=== PATIENT | male | born 1975 | race African-American/Black ===

== ENCOUNTER 2018-06-11 17:25 | Emergency (ER) | payer OTHER ==
--- NOTE | 2018-06-11 18:10 | ER Document Report ---
ED Medical Screen (RME) - General Chief Complaint: Knee Pain Stated Complaint: RIGHT KNEE PAIN Time Seen by Provider: 06/11/18 17:54 Mode of Arrival: Ambulatory Information source: Patient Notes: 43-year-old male presented to ED for complaint of right knee pain. 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 He states that his knee has slowly gotten larger and redder and more painful over the last week. He states that he has been walking and working on it but the pain is become worse each day. His knee is red swollen and hot to the touch. He states the pain radiates all the way up to his groin area. I have greeted and performed a rapid initial assessment of this patient. A comprehensive ED assessment and evaluation of the patient, analysis of test results and completion of medical decision making process will be conducted by an additional ED providers. TRAVEL OUTSIDE OF THE [place] IN LAST 30 DAYS: No - Related Data Allergies/Adverse Reactions: No Known Allergies Allergy (Unverified 06/11/18 17:26) Physical Exam - Vital signs Vitals: Temp Pulse Resp BP Pulse Ox 98.8 F 96 18 158/99 H 97 06/11/18 17:30 06/11/18 17:30 06/11/18 17:30 06/11/18 17:30 06/11/18 17:30 Course - Vital Signs Vital signs: Temp Pulse Resp BP Pulse Ox 98.8 F 96 18 158/99 H 97 06/11/18 17:30 06/11/18 17:30 06/11/18 17:30 06/11/18 17:30 06/11/18 17:30
--- NOTE | 2018-06-11 18:24 | RADIOLOGY REPORT (SQ) ---
EXAM DESCRIPTION: KNEE RIGHT 4 VIEWS COMPLETED DATE/TIME: 06/11/2018 6:15 pm REASON FOR STUDY: red swollen inflamed knee COMPARISON: None. NUMBER OF VIEWS: Four views. TECHNIQUE: AP, lateral, and both oblique radiographic images acquired of the right knee. LIMITATIONS: None. FINDINGS: MINERALIZATION: Normal. BONES: No acute fracture or dislocation. No worrisome bone lesions. No significant osteophytes. JOINT: No effusion. No chondrocalcinosis. OTHER: No other significant finding. IMPRESSION: NEGATIVE STUDY OF THE RIGHT KNEE. NO EXPLANATION FOR PAIN. TECHNICAL DOCUMENTATION: JOB ID: [id number] [employer]- All Rights Reserved Reading location - IP/workstation name: [email or web address]
[2018-06-11] MEDS ORDERED: LIDOCAINE 1% INJ-PF (10 MG/ML) 30 ML SDV INJ ONE (18:41)
[2018-06-11] MEDS ORDERED: BENZOCAINE/MENTHOL AEROSOL SPRAY 56 ML TOP ONE (18:49)
[2018-06-11] MEDS ORDERED: NORFLURANE/PENTAFLUOROPROPANE 30 ML SPRAY TP ONE ×2 (18:52)
--- NOTE | 2018-06-11 19:12 | ER Document Report ---
ED General - General Chief Complaint: Knee Pain Stated Complaint: RIGHT KNEE PAIN Time Seen by Provider: 06/11/18 17:54 Mode of Arrival: Ambulatory Information source: Patient Notes: Patient is a 43-year-old male who presents emergency department with right knee pain. 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 He was standing and a metal BB fell between his knee pad and his knee. He was unable to take the BB out, but continued to work while he had this injury to his knee. He has not seen a primary care doctor for this issue. He actually has a not been to a primary care doctor since June. He does complain of pain when touched in his right knee. He is able to bend his knee 90 degrees. TRAVEL OUTSIDE OF THE [place] IN LAST 30 DAYS: No - Related Data Allergies/Adverse Reactions: No Known Allergies Allergy (Unverified 06/11/18 17:26) Past Medical History - General Information source: Patient - Social History Smoking Status: Never Smoker Frequency of alcohol use: None Drug Abuse: None Lives with: Alone Family History: Reviewed & Not Pertinent Patient has suicidal ideation: No Patient has homicidal ideation: No Renal/ Medical History: Denies: Hx Peritoneal Dialysis Review of Systems - Review of Systems Notes: REVIEW OF SYSTEMS: CONSTITUTIONAL : Denies recent illness. Denies recent unintentional weight loss. Denies fever, chills, or sweats. EENT: Denies eye, ear, throat, or mouth pain, discharge, or symptoms. Denies nasal or sinus congestion. CARDIOVASCULAR: Denies chest pain. RESPIRATORY: Denies shortness of breath, cough, congestion, difficulty breathing, or wheezing. GASTROINTESTINAL: Denies nausea, vomiting, and diarrhea. Denies abdominal pain. Denies constipation. GENITOURINARY: Denies difficulty urinating, burning, blood in urine, urgency or frequency. MUSCULOSKELETAL: Denies neck and back pain. Denies joint pain or swelling. SKIN: See HPI HEMATOLOGIC : Denies easy bruising or bleeding. LYMPHATIC: Denies swollen, painful, enlarged glands. NEUROLOGICAL: Denies no numbness or tingling denies weakness. Denies headache. Denies altered mental status. Denies alteration in speech. PSYCHIATRIC: Denies stress, anxiety, alteration in sleep patterns, or depression. All other systems reviewed and negative. Physical Exam - Vital signs Vitals: Temp Pulse Resp BP Pulse Ox 98.8 F 96 18 158/99 H 97 06/11/18 17:30 06/11/18 17:30 06/11/18 17:30 06/11/18 17:30 06/11/18 17:30 - Notes Notes: PHYSICAL EXAMINATION: GENERAL: Appears well, healthy, well-nourished, no acute distress. HEAD: Normocephalic, atraumatic. EYES: PERRL, conjunctiva normal, all extraocular movements intact, sclera nonicteric ENT: Moist mucous membranes. NECK: Supple, no noticeable swelling, redness, rash. Normal range of motion. LUNGS: Equal breath sounds bilaterally and clear to auscultation. No wheezes rales or rhonchi. CARDIOVASCULAR: S1-S2, regular rate, regular rhythm. Radial pulses 2+, normal. ABDOMEN: Normoactive bowel sounds. Soft, nontender, no guarding, no rebound te nderness, and no masses palpated. EXTREMITIES: Normal strength and range of motion, no pitting or edema. No cyanosis. NEUROLOGICAL: Moves all extremities upon command. Strength 5/5 in all extremi ties. PSYCH: Normal mood, normal affect. SKIN: Warm, dry. Abscess with open skin noted to right knee. Purulent drainage noted on assessment. Surrounding cellulitis on knee leading up to lower one third of right thigh. Normal skin turgor. Course - Re-evaluation Re-evalutation: Differential diagnosis includes but normal limited to: abscess, dermoid cyst, sebaceous cyst, furnucle, or others. Based on patient's physical exam and history, this is an abscess with cellulitis. It was drained in the ER. I do not believe the patient has underlying necrotizing fasciitis. Patient does not has risk factors for MRSA. Based on patient's physical exam and these factors, they will be treated with antibiotics. 06/11/18 19:12 I do not suspect the patient has a septic joint because he is able to bend his knee to 90 degrees. I do not suspect osteomyelitis. His x-ray is normal. No metal fragments noted on x-ray of his right knee. An incision and drainage was made in the area. No fragments found. Purulent drainage was drained from the area. Patient tolerated procedure well. Verbal discharge instructions were given to the patient. He will be started on Keflex and doxycycline. Patient verbalized understanding. He is stable for discharge. 06/11/18 20:26 I was informed by the primary nurse that the patient's blood pressure was high on discharge vital signs. I did a manual blood pressure on him and got 168/108. He states he is supposed to be on hydrochlorothiazide 50 mg p.o. daily and on amlodipine 5 mg daily. I wrote him a prescription for 25 mg of hydrochlorothiazide and told him he needs to follow-up with a primary care doctor. He will also get a dose of hydrochlorothiazide to control his blood pressure right now. Last time he saw a primary care doctor was in June and he stopped taking his blood pressure medications. I had an extensive conversation with the patient in regards to controlling his blood pressure. He is in understanding and is in agreement. - Vital Signs Vital signs: Temp Pulse Resp BP Pulse Ox 98.2 F 81 21 H 168/108 H 99 06/11/18 20:07 06/11/18 20:07 06/11/18 20:07 06/11/18 20:22 06/11/18 20:07 Discharge - Discharge Clinical Impression: Abscess Cellulitis Qualifiers: Site of cellulitis: other site Qualified Code(s): L03.818 - Cellulitis of other sites Condition: Stable Disposition: HOME, SELF-CARE Instructions: Abscess ([facility]), Cellulitis ([facility]), Cephalexin ([facility]), Family Physicians / Practices, Oral Narcotic Medication ([facility]) Additional Instructions: You are seen in the emergency department for right knee pain. You have an abscess and cellulitis in the area. The abscess was drained here in the emergency department. You have been given antibiotics. Please finish all your antibiotics as prescribed. Even if you feel better, please finish the medicine. You may take Motrin 600 mg and Tylenol 1000 mg as needed for the pain. You have also been given a [place] dose pack for the pain. If you plan on working, please do not take the [place]. Please follow-up with a primary care within the next 3-4 days doctor to have your abscess checked. If you develop a fever greater than 100.4 F, have worsening pain to the area, or have any symptoms that are worrisome to you, please return to the emergency department. Prescriptions: Cephalexin Monohydrate [Keflex 500 mg Capsule] 500 mg PO Q6H 7 Days capsule Doxycycline Hyclate 100 mg PO BID #14 capsule Hydrochlorothiazide [Hydrodiuril 25 mg Tablet] 25 mg PO QAM #30 tablet Forms: Elevated Blood Pressure
[2018-06-11] MEDS ORDERED: IBUPROFEN 600 MG TABLET PO ONE (19:18)
[2018-06-11] MEDS ORDERED: HYDROCODONE/ACETAMINOPHEN 5-325 MG (6 TAB/ER DISP) PO PRN (19:18)
[2018-06-11] MEDS ORDERED: ACETAMINOPHEN 325 MG TABLET PO ONE (19:18)
[2018-06-11 20:23] VITALS: BP 168/108
[2018-06-11] MEDS ORDERED: HYDROCHLOROTHIAZIDE 25 MG TABLET PO ONE (20:23)
== END 2018-06-11 20:42 | disposition home or self-care (01) ==
LOC: ER 17:25
PROC: 0H9KXZZ Drainage of Right Lower Leg Skin, External Approach (ICD-10-PCS; principal; 2018-06-11)
DX: L02.415 Cutaneous abscess of right lower limb (principal); L03.115 Cellulitis of right lower limb; M25.561 Pain in right knee; W22.8XXA Striking against or struck by other objects, initial encounter
CPT/HCPCS: 99283; 73564; 10060; A6266; J3490

== ENCOUNTER 2019-11-24 23:52 | Emergency (ER) | payer BC, OTHER ==
[2019-11-25] MEDS ORDERED: NORMAL SALINE 1000 ML 1,000 ML IV ONE (00:31)
--- NOTE | 2019-11-25 00:36 | ER Document Report ---
ED General - General Chief Complaint: Shortness Of Breath Stated Complaint: SHORTNESS OF BREATH,FEVER,DIARRHEA,BODY ACHES Time Seen by Provider: 11/25/19 00:04 TRAVEL OUTSIDE OF THE [place] IN LAST 30 DAYS: No - HPI Notes: Patient is a 44-year-old male who presents to the emergency department for evaluation of cough, congestion, shortness of breath, diarrhea, leg swelling. Symptoms began approximately 3 and half to 4 weeks ago. He has had a cough. It has been intermittently productive of phlegm. He has occasionally shortness of breath. He reports some anosmia over the last 2 weeks. He has had multiple episodes of diarrhea daily. He states he had 3 today. He denies any abnormal travel. He was placed on Zithromax via a telemedicine visit, states he thought his respiratory symptoms got improved for a short amount of time, but now they are back and worsened. He has pain in his lower back this made worsened by coughing. The pain does not radiate. He had a fever, highest 1 was today at 1 01. He did have a sore throat but he states that is improved as well. He noticed swelling in his left leg over the last several days. He denies any chest pain. - Related Data Allergies/Adverse Reactions: No Known Allergies Allergy (Unverified 06/11/18 17:26) Home Medications: Ibuprofen as needed for pain or fever Past Medical History - General Information source: Patient - Social History Smoking Status: Never Smoker Drug Abuse: None Family History: Other - Grandmother with "blood clots" - Past Medical History Cardiac Medical History: Reports: Hx Hypertension - Currently untreated Renal/ Medical History: Denies: Hx Peritoneal Dialysis Past Surgical History: Reports: Hx Orthopedic Surgery - Left ACL repair Review of Systems - Review of Systems Constitutional: See HPI EENT: See HPI Cardiovascular: See HPI Respiratory: See HPI Gastrointestinal: See HPI Musculoskeletal: See HPI -: Yes All other systems reviewed and negative Physical Exam - Vital signs Vitals: Temp Pulse Resp BP Pulse Ox 98.7 F 74 22 H 161/105 H 99 11/25/19 00:07 11/25/19 00:07 11/25/19 00:07 11/25/19 00:07 11/25/19 00:07 - Notes Notes: This is a pleasant 44-year-old male who appears his stated age, in no acute distress. He is intermittently tachypneic, but not conversationally so. Vital signs reviewed, please refer to chart. Head is normocephalic, atraumatic. Pupils equal round, reactive to light. Oral mucosa is moist. He has mild pharyngeal erythema, but no edema or exudate is noted. Uvula is midline. Neck is supple without meningismus. Heart is regular rate and rhythm. Lungs are clear to auscultation bilaterally. Abdomen is soft, nontender, normoactive bowel sounds throughout. Extremities without cyanosis, clubbing. He does have +1 to trace pitting edema bilaterally to the pretibial regions. Posterior calves tender, left greater than right. Peripheral pulses are equal. Skin is warm and dry. Patient is awake, alert, neurological exam is nonfocal. Course - Re-evaluation Re-evalutation: 11/25/19 00:35 Patient presents to the emergency department for evaluation. He is had a month of cough, congestion, diarrhea, and now has leg swelling. Certainly coronavirus, specifically COVID-19, is high my differential. This is ordered. I did also order CBC and CMP, proBNP, troponin, EKG. Unfortunately I do not have Doppler available at this time of night, so d-dimer was added as well. He was given IV fluids. Chest x-ray ordered. He is currently stable, not tachycardic. Awaiting results, we will continue to monitor. 11/25/19 02:06 Patient's laboratory investigations are unremarkable. His d-dimer is undetectable. His Wells criteria is low risk. We talked at length. The patient states that he will not wait here in the emergency department for Doppler to be performed in the morning. I will give him an outpatient order. I do not believe he is high risk enough to anticoagulate at this time. He is not tachycardic. Chest x-ray was interpreted by myself without the radiologist as showing no acute cardiopulmonary disease. Patient was medicated with Toradol. I will have him self quarantine at home given his pending COVID test. Otherw ise, he is to continue supportive care at home, get outpatient Doppler as discussed, and return to the ED with worsening or new concerning symptoms of any sort. - Vital Signs Vital signs: Temp Pulse Resp BP Pulse Ox 98.7 F 74 22 H 161/105 H 99 11/25/19 01:13 11/25/19 00:07 11/25/19 00:07 11/25/19 00:07 11/25/19 00:07 - Laboratory Result Diagrams: 11/25/19 00:41 11/25/19 00:41 Laboratory results interpreted by me: 11/25/19 11/25/19 11/25/19 00:41 00:41 01:25 RBC 4.20 L MCH 34.1 H Alkaline Phosphatase 33 L Urine Ascorbic Acid 40 H - Diagnostic Test Radiology reviewed: Image reviewed - No acute cardiopulmonary disease per my sole interpretation - EKG Interpretation by Me Additional EKG results interpreted by me: 11/25/19 02:08 Sinus mechanism with a rate of 69 bpm. Normal axis and intervals. J-point elevation with resultant ST changes, likely early repolarization. No prior studies for comparison. Discharge - Discharge Clinical Impression: Viral syndrome, Leg edema Diarrhea Qualifiers: Diarrhea type: presumed infectious Qualified Code(s): R19.7 - Diarrhea, unspecified Condition: Stable Disposition: HOME, SELF-CARE Instructions: Acetaminophen, Fever ([facility]), Ibuprofen (General) ([facility]), Viral Syndrome ([facility]) Additional Instructions: Your lab work today failed to reveal any significant abnormalities. Your chest x-ray showed no significant pneumonia. You have declined to stay for an ultra sound of your legs to look for a blood clot. You are being given an outpatient order to have this performed. Please follow the instructions on the the order. You have also been tested for COVID-19. This test can take several days to result. We recommend that you quarantine yourself and any family members/household contacts in your home until your results are posted. You will be contacted with results. If you develop increased difficulty breathing, chest pain, worsening swelling, increased pain, or any other new or concerning symptoms, please return immediately to the emergency department for reevaluation. Forms: Follow-Up Outpatient Testing
[2019-11-25 00:53] LABS: ABSOLUTE EOSINOPHILS # (AUTO) 0.1 10^3/uL (0.0-0.6); ABSOLUTE LYMPHOCYTES (AUTO) 2.9 10^3/uL (0.5-4.7); ABSOLUTE MONOCYTES (AUTO) 0.6 10^3/uL (0.1-1.4); BASOPHILS % (AUTO) 0.7 % (0-2); EOSINOPHILS % (AUTO) 1.6 % (0-6); HEMATOCRIT 40.8 % (37.9-51.0); HEMOGLOBIN 14.3 g/dL (13.5-17.0); LYMPHOCYTES % (AUTO) 42.8 % (13-45); MEAN CORPUSCULAR HEMOGLOBIN 34.1 pg (27.0-33.4); MEAN CORPUSCULAR VOLUME 97 fl (80-97); MONOCYTES % (AUTO) 9.8 % (3-13); PLATELET COUNT 254 10^3/uL (150-450); RED CELL DISTRIBUTION WIDTH 13.8 % (11.5-14.0); SEGMENTED NEUTROPHILS % (AUTO) 45.1 % (42-78); TOTAL CELLS COUNTED % (AUTO) 100 %; WHITE BLOOD COUNT 6.7 10^3/uL (4.0-10.5)
[2019-11-25 01:13] LABS: ALBUMIN 4.6 g/dL (3.5-5.0); ALKALINE PHOSPHATASE 33 U/L (38-126); ANION GAP 7 (5-19); ASPARTATE AMINO TRANSFERASE 32 U/L (17-59); BILIRUBIN,TOTAL 0.4 mg/dL (0.2-1.3); BLOOD UREA NITROGEN 18 mg/dL (7-20); CARBON DIOXIDE 29 mmol/L (22-30); CHLORIDE 102 mmol/L (98-107); GLUCOSE 103 mg/dL (75-110); POTASSIUM 4.3 mmol/L (3.6-5.0); TOTAL PROTEIN 7.8 g/dL (6.3-8.2)
[2019-11-25 01:24] LABS: NT PRO BNP 101 pg/mL (<125)
[2019-11-25 01:25] LABS: TROPONIN I < 0.012 ng/mL
[2019-11-25 01:59] LABS: APPEARANCE,URINE CLEAR; BILIRUBIN,URINE NEGATIVE (NEGATIVE); COLOR,URINE YELLOW; GLUCOSE, URINE NEGATIVE (NEGATIVE); KETONES,URINE NEGATIVE (NEGATIVE); LEUKOCYTE ESTERASE,URINE NEGATIVE (NEGATIVE); NITRITE,URINE NEGATIVE (NEGATIVE); PROTEIN,URINE NEGATIVE (NEGATIVE); URINE SPECIFIC GRAVITY 1.023; UROBILINOGEN,URINE NEGATIVE mg/dL (<2.0)
[2019-11-25] MEDS ORDERED: KETOROLAC TROMETHAMINE INJ/PF 30 MG/1 ML SDV IV ONE (02:06)
--- NOTE | 2019-11-25 02:35 | RADIOLOGY REPORT (SQ) ---
CHEST 1 VIEW on 11/25/2019 at 2:06 AM CLINICAL INDICATION: Cough, shortness of breath COMPARISON: None FINDINGS: The lungs are clear. Cardiac, hilar and mediastinal contours are within normal limits. Pulmonary vascularity is within normal limits. No bony abnormality is noted. IMPRESSION: No active disease.
[2019-11-25 02:58] VITALS: BP 162/103
--- NOTE | 2019-11-25 12:43 | EKG REPORT ---
SEVERITY:- BORDERLINE ECG - SINUS RHYTHM PROBABLE LEFT ATRIAL ABNORMALITY ST ELEV, PROBABLE NORMAL EARLY REPOL PATTERN : Confirmed by: Blayne Davila 25-Nov-2019 12:42:40
== END 2019-11-25 02:58 | disposition home or self-care (01) ==
LOC: ER 23:52
DX: B34.9 Viral infection, unspecified (principal); R60.0 Localized edema; R06.02 Shortness of breath; R19.7 Diarrhea, unspecified; R50.9 Fever, unspecified; M79.10 Myalgia, unspecified site; I10 Essential (primary) hypertension; R05 Cough; M54.5 Low back pain; Z20.828 Contact with and (suspected) exposure to other viral communicable diseases
CPT/HCPCS: 93005; 99285; 96361; 96374; 36415; 85025; 87635; 80053; 81001; 84484; 85379; 83880; 71045; 93010; J1885; J7030; C9803

== ENCOUNTER → 2019-12-05 | Outpatient (CLI) | payer OTHER ==
--- NOTE | 2019-12-05 16:22 | RADIOLOGY REPORT (SQ) ---
EXAM DESCRIPTION: VENOUS BILATERAL LOWER IMAGES COMPLETED DATE/TIME: 12/05/2019 3:45 pm REASON FOR STUDY: EDEMA COMPARISON: None. TECHNIQUE: Dynamic and static gregg scale and color images acquired of both lower extremity venous sy stems. Selected spectral images acquired with additional compression and augmentation maneuvers. Imag es stored on PACS. LIMITATIONS: None. FINDINGS: RIGHT LEG COMMON FEMORAL AND FEMORAL: Normal phasicity, compression and augmentation. No visualized echogenic m aterial on gregg scale. No defects on color images. POPLITEAL: Normal compression and augmentation. No visualized echogenic material on gregg scale. No de fects on color images. CALF VESSELS: Normal compression and augmentation. No visualized echogenic material on gregg scale. No defects on color image. GSV: Normal compression. No visualized echogenic material on gregg scale. No defects on color images. ANY DEEP VENOUS INSUFFICIENCY: Not evaluated. ANY EVIDENCE OF POPLITEAL CYST: No. OTHER: No other significant finding. LEFT LEG COMMON FEMORAL AND FEMORAL: Normal phasicity, compression and augmentation. No visualized echogenic m aterial on gregg scale. No defects on color images. POPLITEAL: Normal compression and augmentation. No visualized echogenic material on gregg scale. No de fects on color images. CALF VESSELS: Normal compression and augmentation. No visualized echogenic material on gregg scale. No defects on color images. GSV: Normal compression. No visualized echogenic material on gregg scale. No defects on color images. ANY DEEP VENOUS INSUFFICIENCY: Not evaluated. ANY EVIDENCE POPLITEAL CYST: No. OTHER: No other significant finding. IMPRESSION: NO EVIDENCE DVT OR SVT IN EITHER LEG. TECHNICAL DOCUMENTATION: JOB ID: [id number] [email or web address]- All Rights Reserved Reading location - IP/workstation name: [email or web address]
== END ==
LOC: SP 14:25
PROVIDERS: ATTEND Emergency Medicine
DX: R60.0 Localized edema (principal); M79.605 Pain in left leg; M79.604 Pain in right leg
CPT/HCPCS: 93970

== ENCOUNTER → 2019-12-05 | Outpatient (CLI) | payer OTHER ==
--- NOTE | 2019-12-05 13:27 | ER RDC ASSESSMENT REPORT ---
Intake - In the Last 14 days Have you traveled outside [place]?: No Have you been in close contact with someone CONFIRMED: No Worked in Healthcare?: No - Symptoms Subjective Fever([place] feverish): Yes Chills: Yes Muscule Aches: Yes Runny Nose: No Sore Throat: Yes Cough (New or worsening chronic cough): Yes Shortness of breath: Yes Nausea or Vomiting: Yes Headache: No Abdominal Pain: No Diarrhea(3 or more loose stools in last 24 hours): Yes - Do you have any of the following Chronic lung disease: Asthma or emphysema or COPD: No Cystic Fibrosis: No Diabetes: No High Blood Pressure: No Cardiovascular Disease: No Chronic Kidney Disease: No Chronic Liver Disease: No Chronic blood disorder like Sickle Cell Disease: No Weak immune system due to disease or medication: No Neurologic condition that limits movement: No Developmental delay - Moderate to Severe: No Recent (within past 2 weeks) or current : No Morbid Obesity (>100 pounds over ideal weight): No - Objective Vital Signs: 5'7", 207 lbs Temperature: 97.2 F Pulse Rate: 71 Respiratory Rate: 18 Blood Pressure: 184/119 O2 Sat by Pulse Oximetry: 98 Objective: Given above, testing performed: strep, flu, covid Disposition: Home; Selfcare - Patient is on way to hospital for further workup, radiology exam. Advised to have BP rechecked there and proceed to ER if remains elevated (we were standing outside in heavy rain when assessment completed) General - General Chief Complaint: Flu Symptoms Time Seen by Provider: 12/05/19 13:27 Mode of Arrival: Ambulatory Information source: Patient - HPI Severity: Moderate Exacerbated by: Denies Relieved by: Denies Similar symptoms previously: No Recently seen / treated by doctor: Yes Notes: 44-year-old male presents to clinic for COVID-19 testing. Patient reports onset of symptoms November 04, 2019. He is reporting fatigue, moderate chills, myalgia, sore throat, cough productive of light yellow phlegm, shortness of breath with exertion, nausea and upset stomach. No exacerbating or relieving factors. He does report a fever T-max of 100.4. Patient reports he did speak with physician at [facility] who has prescribed albuterol and antibiotics; however he has not picked those up yet. - Related Data Allergies/Adverse Reactions: No Known Allergies Allergy (Unverified 06/11/18 17:26) Past Medical History - General Information source: Patient - Social History Smoking Status: Never Smoker Family History: Other - Grandmother with "blood clots" - Past Medical History Cardiac Medical History: Reports: Hx Hypertension - Currently untreated Pulmonary Medical History: Reports: None EENT Medical History: Reports: None Neurological Medical History: Reports: None Endocrine Medical History: Reports: None Renal/ Medical History: Reports: None. Denies: Hx Peritoneal Dialysis Malignancy Medical History: Reports None GI Medical History: Reports: None Musculoskeletal Medical History: Reports None Skin Medical History: Reports None Psychiatric Medical History: Reports: None Traumatic Medical History: Reports: None Infectious Medical History: Reports: None Past Surgical History: Reports: Hx Orthopedic Surgery - Left ACL repair Physical Exam - General General appearance: Appears well In distress: None Notes: PHYSICAL EXAMINATION: GENERAL: Well-appearing and in no acute distress. HEAD: Atraumatic, normocephalic. EYES: sclera anicteric, conjunctiva are normal. ENT: nares patent. Moist mucous membranes. NECK: Normal range of motion, supple without lymphadenopathy LUNGS: CTAB and equal. No wheezes rales or rhonchi. HEART: Regular rate and rhythm without murmurs ABDOMEN: Soft, nontender, normal bowel sounds, no guarding. EXTREMITIES: Normal range of motion, no pitting edema. No cyanosis. BACK: No midline tenderness, no step-off or deformity. No CVA tenderness NEUROLOGICAL: Cranial nerves grossly intact. Normal speech. Normal gait. PSYCH: Normal mood, normal affect. SKIN: Warm, Dry, normal turgor, no rashes or lesions noted Patient Education/Counseling Counseling/Education: Patient presents with upper respiratory symptoms worrisome for possible Covid 19. Patient does not have emergency worrying symptoms such as difficulty breathing, shortness of breath, chest pain, pressure, confusion or cyanosis. BP noted to be extremely elevated (however, measured in suboptimal conditions- outside, heavy rain, standing as he did not have vehicle). Patient was on his way to [facility] for some additional testing in the IR/radiology areas after leaving [facility]. Advised to have rechecked there and proceed to ER if still elevated. Continue with additional plan of care from [facility] physician. Good return precautions have been discussed with patient, patient verbalized understanding and is agreeable with discharge plan of care at this time. Guidance for worsening S/SX: As a person under investigation for Covid 19, the [place] department of Health and Human Services, division of public health advises you to adhere to the following guidance until your test results are reported to you. If your test result is positive, you will receive additional information from your provider and your local health department at that time. Remain at home until you are cleared by the health provider or public health authorities. Keep a log of visitors to your home, notify any visitors to your home of your isolation status. If you plan to move to a new address or leave the county, notify the local health department in your County. Call your doctor or seek care if you have an urgent medical need. Before seeking medical care, call ahead to get instructions from the provider before arriving at the medical office clinic or hospital. Notify them that you are being tested for the virus that causes Covid 19 so that arrangements can be made, as necessary, to prevent transmission to others in the healthcare setting. Next, notify the local health department in your county. If a medical emergency arises and you need to call 911, inform the first responders that you are being tested for the virus that causes Covid 19. Next, notify the local health department in your county. RDC Discharge - Discharge Clinical Impression: Encounter for screening laboratory testing for COVID-19 virus Upper respiratory infection Qualifiers: URI type: unspecified URI Qualified Code(s): J06.9 - Acute upper respiratory infection, unspecified Condition: Stable Disposition: Home; Selfcare
[2019-12-05 13:38] VITALS: BP 184/119
[2019-12-05 14:05] LABS: A TYPE INFLUENZA AG NEGATIVE (NEGATIVE); B INFLUENZA AG NEGATIVE (NEGATIVE)
== END ==
LOC: RDC 13:09
PROVIDERS: ATTEND Student in an Organized Health Care Education/Training Program
DX: Z20.828 Contact with and (suspected) exposure to other viral communicable diseases (principal)
CPT/HCPCS: 36415; 87070; 87880; 87635; 87804; C9803

== ENCOUNTER → 2020-03-20 | Outpatient (CLI) | payer BC, OTHER ==
--- NOTE | 2020-03-20 11:44 | ER [facility] ASSESSMENT REPORT ---
Intake - In the Last 14 days Have you traveled outside [place]?: No Have you been in close contact with someone CONFIRMED: Yes Worked in Healthcare?: No - Symptoms Subjective Fever([place] feverish): Yes Chills: Yes Muscule Aches: Yes Runny Nose: Yes Sore Throat: Yes Cough (New or worsening chronic cough): Yes Shortness of breath: Yes Nausea or Vomiting: Yes Headache: Yes Abdominal Pain: Yes Diarrhea(3 or more loose stools in last 24 hours): Yes - Do you have any of the following Chronic lung disease: Asthma or emphysema or COPD: No Cystic Fibrosis: No Diabetes: No High Blood Pressure: No Cardiovascular Disease: No Chronic Kidney Disease: No Chronic Liver Disease: No Chronic blood disorder like Sickle Cell Disease: No Weak immune system due to disease or medication: No Neurologic condition that limits movement: No Developmental delay - Moderate to Severe: No Recent (within past 2 weeks) or current : No Morbid Obesity (>100 pounds over ideal weight): No - Objective Temperature: 97.9 F Pulse Rate: 88 Respiratory Rate: 18 Blood Pressure: 172/109 O2 Sat by Pulse Oximetry: 97 Objective: Given above, testing performed: If Testing Performed: Test Specimen Type Sent to General - General Mode of Arrival: Ambulatory Information source: Patient Notes: Patient presents to the [facility] for screening for the coronavirus. Patient does report recent exposure to someone who tested positive. Patient's had symptoms for the past 3 days including fever, chills, body aches, sore throat cough naus ea headache and diarrhea. - Related Data Allergies/Adverse Reactions: No Known Allergies Allergy (Unverified 06/11/18 17:26) Past Medical History - General Information source: Patient - Social History Smoking Status: Never Smoker Family History: Other - Grandmother with "blood clots" - Medical History Medical History: Negative Renal/ Medical History: Denies: Hx Peritoneal Dialysis Past Surgical History: Reports: Hx Orthopedic Surgery - Left ACL repair Physical Exam - Notes Notes: The patient was evaluated during the global Covid 19 pandemic, and that diagnosis was suspected/considered upon their initial presentation. Their evaluation, treatment and testing was consistent with current guidelines for patients who present with complaints or symptoms that may be related to Covid 19. Full physical exam could not be performed due to covid 19 isolation protocols. Constitutional: Nontoxic appearance, no acute distress Eyes: Nonicteric, extraocular movements intact, sclera clear ENT: Posterior pharynx clear without exudates, no tonsillar hypertrophy Cardiovascular: Heart rate and rhythm regular, no JVD Respiratory: Breath sounds clear bilaterally, nonlabored breathing, no use of accessory muscles, no tachypnea Gastrointestinal: Abdomen not distended Muculoskeletal: Moves all extremities well, normal gait Skin: Normal color Neuro: Awake alert oriented, normal speech Psych: Normal mood and affect Diagnostic Results Laboratory Results: Patient presents with upper respiratory symptoms worrisome for possible Covid 19. Patient does not have emergency worrying symptoms such as difficulty breathing, shortness of breath, chest pain, pressure, confusion or cyanosis. Patient appears suitable for discharge as they are not of an advanced age, do not have any chronic medical conditions such as diabetes, CAD, immune deficiency, chronic lung disease or chronic kidney disease. Patient's is nontoxic in appearance. Good return precautions have been discussed with patient, patient verbalized understanding and is agreeable with discharge plan of care at this time. Patient with blood pressure 172/109. Patient states that he has had elevated blood pressure in the past although is not on any medications presently. Patient encouraged to limit salt in diet keep a log and to follow-up with primary doctor to have this rechecked. The patient has been informed that they may have pre-hypertension or hypertension based on a blood pressure reading in the emergency department. I recommend that patient call the primary care provider listed on their discharge instructions or a physician of their choice by this week to arrange follow-up for further evaluation of possible pre- hypertension or hypertension. Patient Education/Counseling Counseling/Education: Patient was provided with discharge information including: As a person under investigation for Covid 19, the [place] department of Health and Human Services, division of public health advises you to adhere to the following guidance until your test results are reported to you. If your test result is positive, you will receive additional information from your provider and your local health department at that time. Remain at home until you are cleared by the health provider or public health authorities. Keep a log of visitors to your home, notify any visitors to your home of your isolation status. If you plan to move to a new address or leave the county, notify the local health department in your County. Call your doctor or seek care if you have an urgent medical need. Before seeking medical care, call ahead to get instructions from the provider before arriving at the medical office clinic or hospital. Notify them that you are being tested for the virus that causes Covid 19 so that arrangements can be made, as necessary, to prevent transmission to others in the healthcare setting. Next, notify the local health department in your county. If a medical emergency arises and you need to call 911, inform the first responders that you are being tested for the virus that causes Covid 19. Next, notify the local health department in your county. [facility] Discharge - Discharge Clinical Impression: Encounter for screening laboratory testing for COVID-19 virus Condition: Stable Disposition: Home; Selfcare
[2020-03-20 11:59] VITALS: BP 172/109
[2020-03-20 12:50] LABS: A TYPE INFLUENZA AG NEGATIVE (NEGATIVE); B INFLUENZA AG NEGATIVE (NEGATIVE)
== END ==
LOC: RDC 11:09
PROVIDERS: ATTEND Nurse Practitioner Family
DX: Z20.828 Contact with and (suspected) exposure to other viral communicable diseases (principal)
CPT/HCPCS: 87070; 87880; 87804; U0003; C9803; 87635; 99211

== ENCOUNTER → 2020-04-04 | Outpatient (CLI) | payer BC, OTHER ==
[2020-04-04 13:41] VITALS: BP 183/120
--- NOTE | 2020-04-04 13:41 | ER [facility] ASSESSMENT REPORT ---
Intake - In the Last 14 days Have you traveled outside [place]?: No Have you been in close contact with someone CONFIRMED: Yes Worked in Healthcare?: No - Symptoms Subjective Fever([place] feverish): Yes Chills: Yes Muscule Aches: Yes Runny Nose: Yes Sore Throat: No Cough (New or worsening chronic cough): Yes Shortness of breath: Yes Nausea or Vomiting: Yes Headache: Yes Abdominal Pain: No Diarrhea(3 or more loose stools in last 24 hours): Yes - Do you have any of the following Chronic lung disease: Asthma or emphysema or COPD: No Cystic Fibrosis: No Diabetes: No High Blood Pressure: Yes Cardiovascular Disease: No Chronic Kidney Disease: No Chronic Liver Disease: No Chronic blood disorder like Sickle Cell Disease: No Weak immune system due to disease or medication: No Neurologic condition that limits movement: No Developmental delay - Moderate to Severe: No Morbid Obesity (>100 pounds over ideal weight): No - Objective Temperature: 97.7 F Pulse Rate: 81 Respiratory Rate: 18 Blood Pressure: 183/120 - 198/130 O2 Sat by Pulse Oximetry: 97 Objective: Given above, testing performed: flu, covid Disposition: To ED General - General Stated Complaint: fever, cough, SOB, GI upset Time Seen by Provider: 04/04/20 12:50 Mode of Arrival: Ambulatory Information source: Patient - HPI Notes: 45-year-old male presents to [facility] clinic for COVID-19 testing. Patient reports he did have contact with cousin that has tested positive for COVID-19 approximately 2 weeks ago. Onset of symptoms 03/17/2020. Patient is reporting fever with T-max 101, fatigue, chills, myalgia, runny nose, cough, shortness of breath, nausea, headache, and diarrhea. He denies sore throat or abdominal pain. Patient states he was prescribed a course of doxycycline and albuterol by [facility] approximately 10 to 12 days ago. Patient states he missed several days of the Doxy course and has not yet completed the antibiotics. The rescue inhaler he is using 3-4 times per day. - Related Data Allergies/Adverse Reactions: No Known Allergies Allergy (Unverified 06/11/18 17:26) Past Medical History - General Information source: Patient - Social History Smoking Status: Never Smoker Family History: Other - Grandmother with "blood clots" - Past Medical History Cardiac Medical History: Reports: Hx Hypertension - Currently untreated Pulmonary Medical History: Reports: None EENT Medical History: Reports: None Neurological Medical History: Reports: None Endocrine Medical History: Reports: None Renal/ Medical History: Reports: None. Denies: Hx Peritoneal Dialysis Malignancy Medical History: Reports None GI Medical History: Reports: None Musculoskeletal Medical History: Reports None Skin Medical History: Reports None Psychiatric Medical History: Reports: None Traumatic Medical History: Reports: None Infectious Medical History: Reports: None Past Surgical History: Reports: Hx Orthopedic Surgery - Left ACL repair Physical Exam - Vital signs Interpretation: Hypertensive - General General appearance: Alert In distress: None Notes: PHYSICAL EXAMINATION: GENERAL: Ill-appearing but in no acute distress. HEAD: Atraumatic, normocephalic. EYES: sclera anicteric, conjunctiva are normal. ENT: nares patent. Moist mucous membranes. NECK: Normal range of motion, supple without lymphadenopathy. LUNGS: Mildly increased work of breathing. Lung sounds with scattered expiratory wheezes bilaterally. No rales or rhonchi. HEART: Regular rate and rhythm without murmurs. ABDOMEN: Soft, nontender, normal bowel sounds, no guarding. EXTREMITIES: Normal range of motion, no pitting edema. No cyanosis. NEUROLOGICAL: A&O x 3. Normal speech. PSYCH: Normal mood, normal affect. SKIN: Warm, Dry, normal turgor, no rashes or lesions noted Patient Education/Counseling Counseling/Education: Patient presents with symptoms associated with possible Covid 19 infection. Upon assessment, patient noted to have bilateral expiratory wheezes and shortness of breath with exertion although SPO2 remained stable. Blood pressures were extremely high with first reading being 183/120 and repeat reading being 198/130. Patient states symptoms are not improving despite being on course of doxy and albuterol for over a week (of note, patient has not been following administration directions on Doxy and has missed several doses). Based upon assessment findings and extremely elevated blood pressure, patient was advised to report to ER for further evaluation and work-up. Patient verbalized understanding and is agreeable with plan of care at this time. ER charge nurse notified that patient was being sent over their way. Guidance for worsening S/SX: As a person under investigation for Covid 19, the [facility] of Health and Human Services, division of public health advises you to adhere to the following guidance until your test results are reported to you. If your test result is positive, you will receive additional information from your provider and your local health department at that time. Remain at home until you are cleared by the health provider or public health authorities. Keep a log of visitors to your home, notify any visitors to your home of your isolation status. If you plan to move to a new address or leave the county, notify the local health department in your County. Call your doctor or seek care if you have an urgent medical need. Before seeking medical care, call ahead to get instructions from the provider before arriving at the medical office clinic or hospital. Notify them that you are being tested for the virus that causes Covid 19 so that arrangements can be made, as necessary, to prevent transmission to others in the healthcare setting. Next, notify the local health department in your county. If a medical emergency arises and you need to call 911, inform the first responders that you are being tested for the virus that causes Covid 19. Next, notify the local health department in your county. [facility] Discharge - Discharge Clinical Impression: Encounter for screening laboratory testing for COVID-19 virus Upper respiratory infection Qualifiers: URI type: unspecified URI Qualified Code(s): J06.9 - Acute upper respiratory infection, unspecified Hypertension Qualifiers: Hypertension type: unspecified Qualified Code(s): I10 - Essential (primary) hypertension Condition: Fair Disposition: To ED
[2020-04-04 15:12] LABS: A TYPE INFLUENZA AG NEGATIVE (NEGATIVE); B INFLUENZA AG NEGATIVE (NEGATIVE)
== END ==
LOC: RDC 12:43
PROVIDERS: ATTEND Registered Nurse
DX: Z20.828 Contact with and (suspected) exposure to other viral communicable diseases (principal); R50.9 Fever, unspecified; R05 Cough; R06.02 Shortness of breath; R09.89 Other specified symptoms and signs involving the circulatory and respiratory systems; R11.0 Nausea; R51.9 Headache, unspecified; R19.7 Diarrhea, unspecified; I10 Essential (primary) hypertension; R53.83 Other fatigue
CPT/HCPCS: 87804; 99211 ×2; U0003; C9803; 87635

== ENCOUNTER → 2020-06-14 | Outpatient (CLI) | payer BC, OTHER ==
--- NOTE | 2020-06-14 12:56 | ER [facility] ASSESSMENT REPORT ---
Intake - In the Last 14 days Have you traveled outside [place]?: No Have you been in close contact with someone CONFIRMED: Yes Worked in Healthcare?: No - Symptoms Subjective Fever([place] feverish): No Chills: No Muscule Aches: No Runny Nose: No Sore Throat: No Cough (New or worsening chronic cough): No Shortness of breath: No Nausea or Vomiting: No Headache: No Abdominal Pain: No Diarrhea(3 or more loose stools in last 24 hours): No - Do you have any of the following Chronic lung disease: Asthma or emphysema or COPD: No Cystic Fibrosis: No Diabetes: No High Blood Pressure: No Cardiovascular Disease: No Chronic Kidney Disease: No Chronic Liver Disease: No Chronic blood disorder like Sickle Cell Disease: No Weak immune system due to disease or medication: No Neurologic condition that limits movement: No Developmental delay - Moderate to Severe: No Recent (within past 2 weeks) or current : No Morbid Obesity (>100 pounds over ideal weight): No Obesity Comment: Height 5 feet 7 inches weight 210 pounds - Objective Temperature: 98.7 F Pulse Rate: 77 Respiratory Rate: 16 Blood Pressure: 140/62 O2 Sat by Pulse Oximetry: 97 Objective: Given above, testing performed: If Testing Performed: Test Specimen Type Sent to General - General Information source: Patient Notes: Patient here at [facility] for Covid testing patient's had been exposed to and who has tested positive has developed symptoms patient remains asymptomatic. Patient does not have any local PCP. - Related Data Allergies/Adverse Reactions: No Known Allergies Allergy (Unverified 06/11/18 17:26) Past Medical History - General Information source: Patient - Social History Smoking Status: Never Smoker Family History: Other - Grandmother with "blood clots" - Past Medical History Cardiac Medical History: Reports: Hx Hypertension - Currently untreated Renal/ Medical History: Denies: Hx Peritoneal Dialysis Past Surgical History: Reports: Hx Orthopedic Surgery - Left ACL repair Physical Exam - General General appearance: Appears well, Alert In distress: None Notes: PHYSICAL EXAMINATION: GENERAL: Well-appearing and in no acute distress. HEAD: Atraumatic, normocephalic. EYES: sclera anicteric, conjunctiva are normal. ENT: nares patent. Moist mucous membranes. NECK: Normal range of motion, supple without lymphadenopathy LUNGS: CTAB and equal. No wheezes rales or rhonchi. Respirations even and unlabored lung sounds clear HEART: Regular rate and rhythm without murmurs ABDOMEN: Soft, nontender, normal bowel sounds, no guarding. EXTREMITIES: Normal range of motion, no pitting edema. No cyanosis. NEUROLOGICAL: Cranial nerves grossly intact. Normal speech. Normal gait. PSYCH: Normal mood, normal affect. SKIN: Warm, Dry, normal turgor, no rashes or lesions noted Diagnostic Results Laboratory Results: Pending Covid testing results. Patient provided instructions regarding Covid to include: As a person under investigation for Covid 19, the [facility] of Health and Human Services, division of public health advises you to adhere to the following guidance until your test results are reported to you. If your test result is positive, you will receive additional information from your provider and your local health department at that time. Remain at home until you are cleared by the health provider or public health authorities. Keep a log of visitors to your home, notify any visitors to your home of your isolation status. If you plan to move to a new address or leave the [facility], notify the local health department in your County. Call your doctor or seek care if you have an urgent medical need. Before seeking medical care, call ahead to get instructions from the provider before arriving at the medical office clinic or hospital. Notify them that you are being tested for the virus that causes Covid 19 so that arrangements can be made, as necessary, to prevent transmission to others in the healthcare setting. Next, notify the local health department in your [facility]. If a medical emergency arises and you need to call 911, inform the first responders that you are being tested for the virus that causes Covid 19. Next, notify the local health department in your [facility]. Patient Education/Counseling Counseling/Education: Patient presents with upper respiratory symptoms worrisome for possible Covid 19. Patient does not have emergency worring symptoms such as difficulty breathing, shortness of breath, chest pain, pressure, confusion or cyanosis. Patient appears suitable for discharge. Patient instructed to follow-up at urgent care or to ED for any worsening or change in condition. Patient's vital signs are stable and patient is nontoxic in appearance. Good return precautions have been discussed with patient, patient verbalized understanding and is agreeable with discharge plan of care at this time. [facility] Discharge - Discharge Condition: Stable Disposition: Home; Selfcare
[2020-06-14 13:12] VITALS: BP 140/62
== END ==
LOC: RDC 11:03
PROVIDERS: ATTEND Nurse Practitioner Family
DX: Z20.828 Contact with and (suspected) exposure to other viral communicable diseases (principal); I10 Essential (primary) hypertension
CPT/HCPCS: U0003; C9803; 87635; 99211